=== PATIENT | male | born 1975 | race African-American/Black ===

== ENCOUNTER → 2017-04-01 | Outpatient (CLI) | payer OTHER ==
[2017-04-01 09:31] LABS: ALANINE AMINOTRANSFERASE 42 U/L (21-72); ALBUMIN 4.6 g/dL (3.5-5.0); ALKALINE PHOSPHATASE 64 U/L (38-126); ANION GAP 13 (5-19); ASPARTATE AMINO TRANSFERASE 42 U/L (17-59); BILIRUBIN,DIRECT 0.3 mg/dL (0.0-0.4); BILIRUBIN,TOTAL 0.4 mg/dL (0.2-1.3); BLOOD UREA NITROGEN 19 mg/dL (7-20); CALCIUM 9.7 mg/dL (8.4-10.2); CARBON DIOXIDE 27 mmol/L (22-30); CHLORIDE 107 mmol/L (98-107); CHOLESTEROL 143.62 mg/dL (0-200); CREATININE RESULT 0.99 mg/dL (0.52-1.25); Direct HDL 54 mg/dL (>40); GLUCOSE 105 mg/dL (75-110); POTASSIUM 4.2 mmol/L (3.6-5.0); TOTAL PROTEIN 7.3 g/dL (6.3-8.2); TRIGLYCERIDES 80 mg/dL (<150)
[2017-04-01 09:42] LABS: DIRECT LDL 69 mg/dL (<100)
== END ==
LOC: CCC 07:34
DX: I10 Essential (primary) hypertension (principal)
CPT/HCPCS: 36415; 80053; 80061; 84443

== ENCOUNTER → 2018-10-06 | Outpatient (CLI) | payer OTHER ==
[2018-10-06 12:23] LABS: ABSOLUTE EOSINOPHILS # (AUTO) 0.2 10^3/uL (0.0-0.6); ABSOLUTE LYMPHOCYTES (AUTO) 1.4 10^3/uL (0.5-4.7); ABSOLUTE MONOCYTES (AUTO) 0.4 10^3/uL (0.1-1.4); ABSOLUTE NEUT (AUTO) 2.1 10^3/uL (1.7-8.2); BASOPHILS % (AUTO) 0.8 % (0-2); EOSINOPHILS % (AUTO) 4.3 % (0-6); HEMATOCRIT 41.8 % (37.9-51.0); HEMOGLOBIN 13.7 g/dL (13.5-17.0); LYMPHOCYTES % (AUTO) 33.1 % (13-45); MEAN CORPUSCULAR HEMOGLOBIN 27.7 pg (27.0-33.4); MEAN CORPUSCULAR HGB CONC 32.8 g/dL (32.0-36.0); MEAN CORPUSCULAR VOLUME 85 fl (80-97); MONOCYTES % (AUTO) 9.6 % (3-13); PLATELET COUNT 271 10^3/uL (150-450); RED BLOOD COUNT 4.93 10^6/uL (4.35-5.55); RED CELL DISTRIBUTION WIDTH 14.5 % (11.5-14.0); SEGMENTED NEUTROPHILS % (AUTO) 52.2 % (42-78); TOTAL CELLS COUNTED % (AUTO) 100 %; WHITE BLOOD COUNT 4.1 10^3/uL (4.0-10.5)
[2018-10-06 12:49] LABS: ALANINE AMINOTRANSFERASE 29 U/L (21-72); ALBUMIN 4.5 g/dL (3.5-5.0); ALKALINE PHOSPHATASE 61 U/L (38-126); ANION GAP 11 (5-19); ASPARTATE AMINO TRANSFERASE 21 U/L (17-59); BILIRUBIN,DIRECT 0.2 mg/dL (0.0-0.4); BILIRUBIN,TOTAL 0.6 mg/dL (0.2-1.3); BLOOD UREA NITROGEN 15 mg/dL (7-20); CALCIUM 9.4 mg/dL (8.4-10.2); CARBON DIOXIDE 26 mmol/L (22-30); CHLORIDE 103 mmol/L (98-107); GLUCOSE 92 mg/dL (75-110); POTASSIUM 4.1 mmol/L (3.6-5.0); SODIUM 139.6 mmol/L (137-145); TOTAL PROTEIN 7.2 g/dL (6.3-8.2)
== END ==
LOC: CCC 11:21
DX: I10 Essential (primary) hypertension (principal)
CPT/HCPCS: 36415; 80053; 85025

== ENCOUNTER → 2018-10-12 | Outpatient (CLI) | payer OTHER ==
[2018-10-12 10:21] LABS: CHOLESTEROL 153.89 mg/dL (0-200); TRIGLYCERIDES 49 mg/dL (<150)
[2018-10-12 10:31] LABS: DIRECT LDL 79 mg/dL (<100)
== END ==
LOC: CCC 08:29
DX: I10 Essential (primary) hypertension (principal)
CPT/HCPCS: 36415; 80061

== ENCOUNTER → 2020-01-05 | Outpatient (CLI) | payer OTHER ==
--- NOTE | 2020-01-05 11:22 | ER RDC ASSESSMENT REPORT ---
Intake - In the Last 14 days Have you traveled outside [place]?: No Have you been in close contact with someone CONFIRMED: Yes Worked in Healthcare?: No - Symptoms Subjective Fever([place] feverish): No Chills: No Muscule Aches: No Runny Nose: No Sore Throat: No Cough (New or worsening chronic cough): No Shortness of breath: No Nausea or Vomiting: No Headache: No Abdominal Pain: No Diarrhea(3 or more loose stools in last 24 hours): No - Do you have any of the following Chronic lung disease: Asthma or emphysema or COPD: Yes Cystic Fibrosis: No Diabetes: No High Blood Pressure: Yes Cardiovascular Disease: No Chronic Kidney Disease: No Chronic Liver Disease: No Chronic blood disorder like Sickle Cell Disease: No Weak immune system due to disease or medication: No Neurologic condition that limits movement: No Developmental delay - Moderate to Severe: No Morbid Obesity (>100 pounds over ideal weight): No - Objective Temperature: 96.0 F Pulse Rate: 67 Respiratory Rate: 8 Blood Pressure: 140/77 O2 Sat by Pulse Oximetry: 97 Objective: Given above, testing performed: covid Disposition: Home; Selfcare General - General Chief Complaint: Other Time Seen by Provider: 01/05/20 11:15 Mode of Arrival: Ambulatory Information source: Patient - HPI Notes: Patient presents to clinic for COVID-19 testing after coming in close contact with another COVID 19 positive individual. Patient is asymptomatic. They deny any cough, shortness of breath, fever, chills, muscle aches, rhinorrhea, sore throat, nausea or vomiting, headache, abdominal pain or diarrhea. Patient has no acute medical concerns. Past Medical History - General Information source: Patient - Social History Smoking Status: Former Smoker - Past Medical History Cardiac Medical History: Reports: Hx Hypertension Pulmonary Medical History: Reports: Hx Asthma EENT Medical History: Reports: None Neurological Medical History: Reports: None Endocrine Medical History: Reports: None Renal/ Medical History: Reports: None Malignancy Medical History: Reports None GI Medical History: Reports: None Musculoskeletal Medical History: Reports None Skin Medical History: Reports None Psychiatric Medical History: Reports: None Traumatic Medical History: Reports: None Infectious Medical History: Reports: None Past Surgical History: Reports: None Physical Exam - General General appearance: Appears well, Alert In distress: None Notes: PHYSICAL EXAMINATION: GENERAL: Well-appearing and in no acute distress. HEAD: Atraumatic, normocephalic. EYES: sclera anicteric, conjunctiva are normal. ENT: nares patent. Moist mucous membranes. NECK: Normal range of motion, supple without lymphadenopathy. LUNGS: No increased work of breathing. Lung sounds CTAB and equal. No wheezes rales or rhonchi. HEART: Regular rate and rhythm without murmurs. ABDOMEN: Soft, nontender, normal bowel sounds, no guarding. EXTREMITIES: Normal range of motion, no pitting edema. No cyanosis. NEUROLOGICAL: A&O x 3. Normal speech. PSYCH: Normal mood, normal affect. SKIN: Warm, Dry, normal turgor, no rashes or lesions noted Diagnostic Results Laboratory Results: COVID pending Patient Education/Counseling Counseling/Education: Patient presents for COVID 19 testing after close exposure to another person who has tested positive for COVID 19. Patient is asymptomatic at this time. Patient does not have emergency worrying symptoms such as difficulty breathing, shortness of breath, chest pain, pressure, confusion or cyanosis. Patient appears suitable for discharge as vital signs are stable and patient is nontoxic in appearance. Good return precautions have been discussed with patient, patient verbalized understanding and is agreeable with discharge plan of care at this time. Guidance for worsening S/SX: As a person under investigation for Covid 19, the [place] department of Health and Human Services, division of public health advises you to adhere to the following guidance until your test results are reported to you. If your test result is positive, you will receive additional information from your provider and your local health department at that time. Remain at home until you are cleared by the health provider or public health authorities. Keep a log of visitors to your home, notify any visitors to your home of your isolation status. If you plan to move to a new address or leave the county, notify the local health department in your County. Call your doctor or seek care if you have an urgent medical need. Before seeking medical care, call ahead to get instructions from the provider before arriving at the medical office clinic or hospital. Notify them that you are being tested for the virus that causes Covid 19 so that arrangements can be made, as necessary, to prevent transmission to others in the healthcare setting. Next, notify the local health department in your county. If a medical emergency arises and you need to call 911, inform the first responders that you are being tested for the virus that causes Covid 19. Next, notify the local health department in your county. RDC Discharge - Discharge Clinical Impression: Encounter for screening laboratory testing for COVID-19 virus in asymptomatic patient Condition: Good Disposition: Home; Selfcare
[2020-01-05 11:34] VITALS: BP 140/77
== END ==
LOC: RDC 10:50
PROVIDERS: ATTEND Registered Nurse
DX: Z20.828 Contact with and (suspected) exposure to other viral communicable diseases (principal); I10 Essential (primary) hypertension; Z87.09 Personal history of other diseases of the respiratory system; Z87.891 Personal history of nicotine dependence
CPT/HCPCS: 87635; C9803; 99201; 99211

== ENCOUNTER → 2020-03-08 | Outpatient (CLI) | payer OTHER ==
[2020-03-08 08:26] LABS: ABSOLUTE EOSINOPHILS # (AUTO) 0.3 10^3/uL (0.0-0.6); ABSOLUTE LYMPHOCYTES (AUTO) 1.2 10^3/uL (0.5-4.7); ABSOLUTE MONOCYTES (AUTO) 0.6 10^3/uL (0.1-1.4); ABSOLUTE NEUT (AUTO) 2.1 10^3/uL (1.7-8.2); BASOPHILS % (AUTO) 0.9 % (0-2); EOSINOPHILS % (AUTO) 6.2 % (0-6); HEMATOCRIT 42.6 % (37.9-51.0); HEMOGLOBIN 14.3 g/dL (13.5-17.0); LYMPHOCYTES % (AUTO) 28.7 % (13-45); MEAN CORPUSCULAR HEMOGLOBIN 28.6 pg (27.0-33.4); MEAN CORPUSCULAR HGB CONC 33.6 g/dL (32.0-36.0); MEAN CORPUSCULAR VOLUME 85 fl (80-97); PLATELET COUNT 271 10^3/uL (150-450); RED CELL DISTRIBUTION WIDTH 14.4 % (11.5-14.0); SEGMENTED NEUTROPHILS % (AUTO) 50.2 % (42-78); TOTAL CELLS COUNTED % (AUTO) 100 %; WHITE BLOOD COUNT 4.1 10^3/uL (4.0-10.5)
[2020-03-08 08:38] LABS: APPEARANCE,URINE CLEAR; BILIRUBIN,URINE NEGATIVE (NEGATIVE); COLOR,URINE YELLOW; GLUCOSE, URINE NEGATIVE (NEGATIVE); KETONES,URINE NEGATIVE (NEGATIVE); LEUKOCYTE ESTERASE,URINE NEGATIVE (NEGATIVE); NITRITE,URINE NEGATIVE (NEGATIVE); PROTEIN,URINE NEGATIVE (NEGATIVE); URINE SPECIFIC GRAVITY 1.014; UROBILINOGEN,URINE NEGATIVE mg/dL (<2.0)
[2020-03-08 08:49] LABS: ALBUMIN 4.5 g/dL (3.5-5.0); ALKALINE PHOSPHATASE 65 U/L (38-126); ANION GAP 7 (5-19); ASPARTATE AMINO TRANSFERASE 25 U/L (17-59); BILIRUBIN,DIRECT 0.3 mg/dL (0.0-0.4); BILIRUBIN,TOTAL 0.7 mg/dL (0.2-1.3); BLOOD UREA NITROGEN 13 mg/dL (7-20); CALCIUM 9.5 mg/dL (8.4-10.2); CARBON DIOXIDE 29 mmol/L (22-30); CHLORIDE 105 mmol/L (98-107); CHOLESTEROL 151.65 mg/dL (0-200); GLUCOSE 96 mg/dL (75-110); POTASSIUM 4.2 mmol/L (3.6-5.0); TOTAL PROTEIN 7.1 g/dL (6.3-8.2); TRIGLYCERIDES 70 mg/dL (<150)
[2020-03-08 09:03] LABS: DIRECT LDL 64 mg/dL (<100)
== END ==
LOC: CCC 07:05
PROVIDERS: ATTEND Family Medicine
DX: Z13.9 Encounter for screening, unspecified (principal)
CPT/HCPCS: 36415; 80053; 80061; 81001; 83036; 84443; 85025